=== PATIENT | female | born 1965 | race Two or more races ===

== ENCOUNTER 2017-07-19 08:12 | Outpatient (CLI) | payer OTHER | END 2017-07-19 14:33 | disposition home or self-care (01) | LOC: MRI 08:12 | DX: R51 Headache (principal) | CPT/HCPCS: 70553; 72141 ==

== ENCOUNTER 2017-07-30 11:42 | Outpatient (CLI) | payer OTHER | END 2017-07-30 14:08 | disposition home or self-care (01) | LOC: RAD 11:42 | DX: J44.1 Chronic obstructive pulmonary disease with (acute) exacerbation (principal); F41.9 Anxiety disorder, unspecified; M54.5 Low back pain; J45.909 Unspecified asthma, uncomplicated ==

== ENCOUNTER 2017-10-25 11:16 | Outpatient (CLI) | payer OTHER | END 2017-10-25 16:35 | disposition home or self-care (01) | LOC: MAMO-SONO 11:16 | DX: N85.00 Endometrial hyperplasia, unspecified (principal) ==

== ENCOUNTER 2018-01-03 08:52 | Day surgery (SDC) | payer OTHER | END 2018-01-03 14:00 | disposition home or self-care (01) | LOC: AMB-ENDOS 08:52 | DX: K64.4 Residual hemorrhoidal skin tags (principal) ==

== ENCOUNTER 2018-04-28 08:45 | Emergency (ER) | payer OTHER ==
[~2018-04-28] VITALS: Ht 167.6 cm; Wt 70.3 kg
== END 2018-04-28 22:17 | disposition home or self-care (01) ==
LOC: ER 08:45
DX: G43.809 Other migraine, not intractable, without status migrainosus (principal); G44.209 Tension-type headache, unspecified, not intractable

== ENCOUNTER 2018-04-29 11:07 | Outpatient (CLI) | payer OTHER | END 2018-04-29 14:11 | disposition home or self-care (01) | LOC: TOM 11:07 | DX: J32.4 Chronic pansinusitis (principal); J34.2 Deviated nasal septum ==

== ENCOUNTER 2018-08-01 16:26 | Outpatient (CLI) | payer OTHER | END 2018-08-01 16:49 | disposition home or self-care (01) | LOC: EKG 16:26 → LAB 16:26 → EKG 16:49 | DX: R51 Headache (principal); J32.4 Chronic pansinusitis; J34.2 Deviated nasal septum ==

== ENCOUNTER → 2018-08-01 | Outpatient (CLI) | payer OTHER | END | disposition home or self-care (01) | LOC: RAD 12:33 | DX: N64.4 Mastodynia (principal); Z01.811 Encounter for preprocedural respiratory examination ==

== ENCOUNTER → 2018-08-22 | Outpatient (CLI) | payer OTHER | END | disposition home or self-care (01) | LOC: NUCLEAR 14:37 | DX: M81.0 Age-related osteoporosis without current pathological fracture (principal); N60.12 Diffuse cystic mastopathy of left breast; N60.11 Diffuse cystic mastopathy of right breast; N64.4 Mastodynia; D25.0 Submucous leiomyoma of uterus; D25.2 Subserosal leiomyoma of uterus ==

== ENCOUNTER 2019-05-08 14:38 | Outpatient (CLI) | payer OTHER | END 2019-05-08 14:45 | disposition home or self-care (01) | LOC: SONOGRAMA 14:38 | DX: N94.12 Deep dyspareunia (principal) ==

== ENCOUNTER 2019-05-30 10:55 | Outpatient (CLI) | payer OTHER | END 2019-05-30 18:19 | disposition home or self-care (01) | LOC: SONOGRAMA 10:55 | DX: R10.84 Generalized abdominal pain (principal) ==

== ENCOUNTER → 2019-12-25 | Outpatient (CLI) | payer OTHER | END | disposition home or self-care (01) | LOC: RAD 10:29 | PROVIDERS: ATTEND Physical Medicine & Rehabilitation | DX: M79.672 Pain in left foot (principal); M77.42 Metatarsalgia, left foot ==

== ENCOUNTER → 2020-04-04 | Outpatient (CLI) | payer OTHER | END | disposition home or self-care (01) | LOC: RAD 12:35 | PROVIDERS: ATTEND Radiology Diagnostic Radiology | DX: I10 Essential (primary) hypertension (principal) ==

== ENCOUNTER 2020-07-29 10:26 | Outpatient (CLI) | payer OTHER | END 2020-07-29 10:51 | disposition home or self-care (01) | LOC: MAMO-SONO 10:26 | DX: Z12.31 Encounter for screening mammogram for malignant neoplasm of breast (principal); N60.11 Diffuse cystic mastopathy of right breast; N60.12 Diffuse cystic mastopathy of left breast; N64.59 Other signs and symptoms in breast ==

== ENCOUNTER → 2020-12-02 | Outpatient (CLI) | payer OTHER | END | disposition home or self-care (01) | LOC: TOM 07:33 | PROVIDERS: ATTEND Otolaryngology | DX: J32.4 Chronic pansinusitis (principal); J34.2 Deviated nasal septum ==

== ENCOUNTER 2021-04-23 14:50 | Outpatient (CLI) | payer OTHER | END 2021-04-23 15:37 | disposition home or self-care (01) | LOC: RAD 14:50 | PROVIDERS: ATTEND Specialist | DX: N23 Unspecified renal colic (principal) ==

== ENCOUNTER → 2021-04-23 15:01 | Outpatient (CLI) | payer OTHER | END | disposition home or self-care (01) | LOC: LAB 15:01 | PROVIDERS: ATTEND Specialist | DX: B96.29 Other Escherichia coli [E. coli] as the cause of diseases classified elsewhere (principal); N39.0 Urinary tract infection, site not specified; D50.8 Other iron deficiency anemias ==

== ENCOUNTER 2021-04-28 10:51 | Outpatient (CLI) | payer OTHER | END 2021-04-28 11:18 | disposition home or self-care (01) | LOC: SONOGRAMA 10:51 | PROVIDERS: ATTEND Specialist | DX: N20.0 Calculus of kidney (principal) ==

== ENCOUNTER → 2021-04-29 | Outpatient (CLI) | payer OTHER | END | disposition home or self-care (01) | LOC: TOM 14:27 | PROVIDERS: ATTEND Radiology Diagnostic Radiology | DX: K80.80 Other cholelithiasis without obstruction (principal); N20.1 Calculus of ureter; N20.0 Calculus of kidney ==

== ENCOUNTER 2021-04-30 10:51 | Day surgery (SDC) | payer OTHER | END 2021-04-30 21:35 | disposition home or self-care (01) | LOC: CIR.AMB 10:51 | PROVIDERS: ATTEND Urology | DX: N20.0 Calculus of kidney (principal); Z20.822 Contact with and (suspected) exposure to COVID-19 ==

== ENCOUNTER 2021-05-14 08:50 | Outpatient (CLI) | payer OTHER | END 2021-05-14 09:10 | disposition home or self-care (01) | LOC: RAD 08:50 | PROVIDERS: ATTEND Urology | DX: N20.0 Calculus of kidney (principal) ==

== ENCOUNTER 2021-05-14 09:16 | Outpatient (CLI) | payer OTHER | END 2021-05-14 09:19 | disposition home or self-care (01) | LOC: LAB 09:16 | PROVIDERS: ATTEND Urology | DX: N30.00 Acute cystitis without hematuria (principal) ==

== ENCOUNTER 2021-07-23 06:36 | Outpatient (CLI) | payer OTHER | END 2021-07-23 15:23 | disposition home or self-care (01) | LOC: RAD 06:36 | PROVIDERS: ATTEND Urology | DX: N20.0 Calculus of kidney (principal) ==

== ENCOUNTER 2021-08-11 07:58 | Outpatient (CLI) | payer OTHER | END 2021-08-11 15:45 | disposition home or self-care (01) | LOC: MRI 07:58 | DX: R10.11 Right upper quadrant pain (principal); R41.3 Other amnesia; G43.909 Migraine, unspecified, not intractable, without status migrainosus; Z12.31 Encounter for screening mammogram for malignant neoplasm of breast | CPT/HCPCS: 70551 ==

== ENCOUNTER 2021-08-20 11:19 | Outpatient (CLI) | payer OTHER | END 2021-08-20 15:20 | disposition home or self-care (01) | LOC: RAD 11:19 | PROVIDERS: ATTEND Radiology Diagnostic Radiology | DX: I10 Essential (primary) hypertension (principal) ==

== ENCOUNTER 2021-11-24 11:11 | Outpatient (CLI) | payer OTHER | END 2021-11-24 12:00 | disposition home or self-care (01) | LOC: MRI 11:11 | PROVIDERS: ATTEND Radiology Diagnostic Radiology | DX: G25.9 Extrapyramidal and movement disorder, unspecified (principal); R20.2 Paresthesia of skin | CPT/HCPCS: 70551; 72141 ==

== ENCOUNTER 2022-07-29 09:10 | Outpatient (CLI) | payer OTHER | END 2022-07-29 15:02 | disposition home or self-care (01) | LOC: LAB 09:10 | PROVIDERS: ATTEND Internal Medicine Hematology & Oncology | DX: D50.8 Other iron deficiency anemias (principal); R79.9 Abnormal finding of blood chemistry, unspecified; I10 Essential (primary) hypertension; R74.02 Elevation of levels of lactic acid dehydrogenase [LDH]; K76.89 Other specified diseases of liver; D51.1 Vitamin B12 deficiency anemia due to selective vitamin B12 malabsorption with proteinuria; D51.0 Vitamin B12 deficiency anemia due to intrinsic factor deficiency; E03.8 Other specified hypothyroidism; E06.3 Autoimmune thyroiditis; C56.9 Malignant neoplasm of unspecified ovary; R97.8 Other abnormal tumor markers; R97.1 Elevated cancer antigen 125 [CA 125]; R97.0 Elevated carcinoembryonic antigen [CEA]; D68.59 Other primary thrombophilia; D68.61 Antiphospholipid syndrome; E72.12 Methylenetetrahydrofolate reductase deficiency; D51.3 Other dietary vitamin B12 deficiency anemia ==

== ENCOUNTER 2022-08-03 07:34 | Outpatient (CLI) | payer OTHER | END 2022-08-03 08:00 | disposition home or self-care (01) | LOC: MAMO-SONO 07:34 | PROVIDERS: ATTEND Internal Medicine Hematology & Oncology | DX: Z12.31 Encounter for screening mammogram for malignant neoplasm of breast (principal); N63.0 Unspecified lump in unspecified breast; N64.4 Mastodynia; D51.3 Other dietary vitamin B12 deficiency anemia; D68.61 Antiphospholipid syndrome; E72.12 Methylenetetrahydrofolate reductase deficiency; E04.2 Nontoxic multinodular goiter; Z01.818 Encounter for other preprocedural examination ==

== ENCOUNTER 2024-06-12 09:04 | Outpatient (CLI) | payer OTHER | END 2024-06-12 09:15 | disposition home or self-care (01) | LOC: MAMO-SONO 09:04 | PROVIDERS: ATTEND Radiology Diagnostic Radiology | DX: Z12.31 Encounter for screening mammogram for malignant neoplasm of breast (principal); N60.11 Diffuse cystic mastopathy of right breast ==

== ENCOUNTER 2024-12-04 08:46 | Outpatient (CLI) | payer OTHER | END 2024-12-05 14:01 | disposition home or self-care (01) | LOC: MRI 08:46 | PROVIDERS: ATTEND Obstetrics & Gynecology | DX: I86.8 Varicose veins of other specified sites (principal) | CPT/HCPCS: 72196 ==

== ENCOUNTER → 2024-12-04 08:59 | Outpatient (CLI) | payer OTHER | END | disposition home or self-care (01) | LOC: NUCLEAR 08:59 | DX: M81.0 Age-related osteoporosis without current pathological fracture (principal) ==